=== PATIENT | male | born 1990 | race Caucasian/White ===

== ENCOUNTER 2019-07-03 08:57 | Emergency (ER) | payer OTHER ==
[~2019-07-03] VITALS: Ht 180.3 cm; Wt 65.8 kg
[2019-07-03 09:11] VITALS: BP_SYST 131
--- NOTE | 2019-07-03 09:20 | NUR ---
Patient to ER bed H1 to gown for evaluation. Side rails up.
--- NOTE | 2019-07-03 09:25 | NUR ---
PT PRESENTS TO ED S/P TC C/O L EYE PAIN.
--- NOTE | 2019-07-03 09:28 | NUR ---
ER at bedside examining patient.
--- NOTE | 2019-07-03 09:30 | NUR ---
[facility] AT BEDSIDE FOR REPORT. REPORT # [phone]
[2019-07-03 09:40] VITALS: BP_SYST 131
--- NOTE | 2019-07-03 09:40 | NUR ---
Patient given written and verbal discharge instructions and verbalizes understanding. ER MD discussed with patient the results and treatment provided. Patient in stable condition. ID arm band removed. NO Rx given. Patient educated on pain management and to follow up with PMD. Pain Scale 3. Opportunity for questions provided and answered. Medication side effect fact sheet provided.
== END 2019-07-03 09:40 | disposition home or self-care (01) ==
LOC: SED 08:57
DX: S00.81XA Abrasion of other part of head, initial encounter (principal); V89.2XXA Person injured in unspecified motor-vehicle accident, traffic, initial encounter; Y93.89 Activity, other specified; Y92.413 State road as the place of occurrence of the external cause; Y99.8 Other external cause status
CPT/HCPCS: 99283